=== PATIENT | male | born 1995 | race Two or more races ===

== ENCOUNTER 2017-07-30 22:54 | Emergency (ER) | payer SELFPAY ==
[2017-07-30] MEDS ORDERED: DIAZEPAM INJ 10 MG/2 ML DISP.SYRIN IM ONE (23:46)
--- NOTE | 2017-07-30 23:47 | ER Document Report ---
HPI - HPI Patient complains to provider of: neck pain Pain Level: 4 Context: Patient is a 22-year-old male who comes emergency department for chief complaint of neck pain on the left side, he states he cannot turn his head to the left or rotated without having a sharp pain and feeling tightness. He states that he performed an awkward range of motion movement early this morning and he felt pain in the area, he states that since that time he has worsened and become increasingly tight and painful. He denies any fall, denies any focal numbness or weakness, denies headache, denies incontinence. He takes no daily medications, denies any past medical history. - DERM Skin Color: Normal Past Medical History - General Information source: Patient - Social History Smoking Status: Never Smoker Drug Abuse: None Lives with: Spouse/Significant other Family History: Reviewed & Not Pertinent Patient has suicidal ideation: No Patient has homicidal ideation: No - Medical History Medical History: Negative Renal/ Medical History: Denies: Hx Peritoneal Dialysis Surgical Hx: Negative - Immunizations Immunizations up to date: Yes Hx Diphtheria, Pertussis, Tetanus Vaccination: Yes Vertical Provider Document - CONSTITUTIONAL General Appearance: WD/WN - INFECTION CONTROL TRAVEL OUTSIDE OF THE [place] IN LAST 30 DAYS: No - HEENT HEENT: Atraumatic, Normal ENT Exam, Normocephalic - NECK Neck: Normal Inspection - RESPIRATORY Respiratory: Breath Sounds Normal, No Respiratory Distress O2 Sat by Pulse Oximetry: 98 - CARDIOVASCULAR Cardiovascular: Regular Rate, Regular Rhythm - GI/ABDOMEN Gastrointestinal: Abdomen Soft, Abdomen Non-Tender - BACK Back: negative: Normal Inspection - Patient with tenderness along the distribution of the left trapezius muscle and slightly along the left paracervical muscle, no midline tenderness, normal upper and lower extremity range of motion, strength, distal neurovascular exam, no saddle anesthesia. Pain with rotation of the neck muscles especially to the left, flexion and extension are normal. Course - Re-evaluation Re-evalutation: Patient with some torticollis from muscle spasm of the left trapezius muscle per examination. No midline back tenderness, no trauma, no neurological deficits. Patient did have significant improvement after Valium in the emergency department, he will be given Valium at home for continued treatment. Discussed return precautions, patient and significant other state understanding and agreement. - Vital Signs Vital signs: Temp Pulse Resp BP Pulse Ox 98.9 F 60 18 144/84 H 98 10/08/17 23:09 07/30/17 23:09 07/30/17 23:09 07/30/17 23:09 07/30/17 23:09 Discharge - Discharge Clinical Impression: Neck pain, Muscle spasm Left shoulder pain Qualifiers: Chronicity: acute Qualified Code(s): M25.512 - Pain in left shoulder Condition: Stable Disposition: HOME, SELF-CARE Additional Instructions: Your examination is consistent with a muscle spasm in the left trapezius muscle. Apply heat, perform gentle stretches, take the Valium as prescribed. Follow-up with primary care. Return to the emergency department for any concerning or worsening symptoms including numbness, swelling, or any other concerning symptoms. Prescriptions: Diazepam [Valium 5 mg Tablet] 1 - 2 tab PO TID #20 tablet Forms: Return to Work
[2017-07-31] MEDS ORDERED: DIAZEPAM INJ 10 MG/2 ML DISP.SYRIN IM ONE (01:30)
[2017-07-31 01:59] VITALS: BP 129/77
== END 2017-07-31 01:58 | disposition home or self-care (01) ==
LOC: ER 22:54
DX: M54.2 Cervicalgia (principal); M62.838 Other muscle spasm; M25.512 Pain in left shoulder; R07.9 Chest pain, unspecified
CPT/HCPCS: 99283; 96372; J3360